=== PATIENT | female | born 1975 | race Two or more races ===

== ENCOUNTER 2020-04-30 15:42 | Outpatient (CLI) | payer OTHER ==
[2020-04-30] MEDS ORDERED: FORTAMET500 MG PO (16:14)
[2020-05-08] MEDS ORDERED: ALLEGRA ALLERG180 MG PO (08:15)
== END 2020-04-30 18:00 | disposition home or self-care (01) ==
LOC: EKG 15:42
PROVIDERS: ATTEND Obstetrics & Gynecology
DX: R00.2 Palpitations (principal)

== ENCOUNTER 2020-05-09 05:52 | Day surgery (SDC) | payer OTHER ==
[~2020-05-09 05:52] MED LIST: ALLEGRA ALLERG180 MG PO; FORTAMET500 MG PO
[2020-05-09] MEDS ORDERED: KETO10TA2 PO (09:27)
[2020-05-09] MEDS ORDERED: ACETAMINOPHEN-1 EAC2 PO (09:28)
== END 2020-05-09 12:50 | disposition home or self-care (01) ==
LOC: CIR.AMB 05:52
PROVIDERS: ATTEND Obstetrics & Gynecology
DX: D27.1 Benign neoplasm of left ovary (principal)